=== PATIENT | male | born 1990 | race Caucasian/White ===

== ENCOUNTER 2019-10-05 11:39 | Emergency (ER) | payer OTHER ==
[2019-10-05] MEDS ORDERED: Sodium Chloride 0.9% 1000 ML 1,000 ML IV STA (11:52)
[2019-10-05] MEDS ORDERED: Robitussin AC Syrup Unit Dose Cup PO PRN (11:52)
[2019-10-05] MEDS ORDERED: TYLENOL 325 MG PO ONE (11:52)
[2019-10-05 12:12] LABS: Hematocrit 43.1 % (42-50); Hemoglobin 14.6 gm/dl (12.5-18.0); Mean Cell Volume 87.2 fl (78-100); Mean Corpuscular Hemoglobin 29.6 pg (26-32); Mean Corpuscular Hgb Concent. 33.9 g/dl (32-36); Mean Platelet Volume 9.5 fl (6-9.5); Platelet Count 197 K/mm3 (150-450); Red Blood Count 4.94 M/mm3 (4.1-5.6); Red Cell Distribution Width 13.2 % (11.5-14.0); White Blood Count 7.7 K/mm3 (4.0-10.5)
[2019-10-05] MEDS ORDERED: TYLENOL 325 MG ONE (12:21)
[2019-10-05] MEDS ORDERED: Sodium Chloride 0.9% 1000 ML 1,000 ML ONE (12:21)
[2019-10-05] MEDS ORDERED: Robitussin AC Syrup Unit Dose Cup ONE (12:21)
[2019-10-05 12:26] LABS: ALBUMIN 4.6 g/dL (3.5-5.0); ALKALINE PHOSPHATASE 82 U/L (38-126); ANION GAP 13.9 MEQ/L (5-15); BLOOD UREA NITROGEN 12 mg/dL (9-20); CHLORIDE 99 mmol/L (98-107); Calcium 9.7 mg/dL (8.4-10.2); Carbon Dioxide 30 mmol/L (22-30); Creatinine 1 0.96 mg/dL (0.66-1.25); Glucose 143 mg/dL (74-106); Potassium 4.2 mmol/L (3.5-5.1); SGOT/AST 39 U/L (17-59); SGPT/ALT 42 U/L (0-50); SODIUM 138 mmol/L (137-145); Total Protein 8.7 g/dL (6.3-8.2)
--- NOTE | 2019-10-05 12:37 | ERPHSYRPT ---
- History of Present Illness Time Seen by Provider: 10/05/19 12:35 Source: patient Exam Limitations: no limitations Patient Subjective Stated Complaint: pt c/o of vomiting, coughing, dizzy, diarrhea for past 3 days Triage Nursing Assessment: Pt walked into the ER, hypertensive, rates pain in chest at 3/10 from coughing, bowel sounds heard in all 4, lungs clear Physician History: pt c/o of vomiting, coughing, dizzy, diarrhea for past 3 days Timing/Duration: day(s) (3 days) Cough Quality/Degree: dry cough Associated Symptoms: fever, chills, cough, dizziness, headache, muscle aches, sore throat, other (diarrhea) International travel in last 2 weeks: No Allergies/Adverse Reactions: No Known Drug Allergies Allergy (Verified 10/05/19 11:55) Home Medications: Armodafinil 200 mg PO DAILY 10/05/19 [History] Hx Influenza Vaccination/Date Given: No - Review of Systems Constitutional: Fever, Chills, Malaise Eyes: No Symptoms Ears, Nose, & Throat: No Symptoms Respiratory: Cough, No Dyspnea Cardiac: No Chest Pain, No Edema, No Syncope Abdominal/Gastrointestinal: Diarrhea, No Abdominal Pain, No Nausea, No Vomiting Genitourinary Symptoms: No Dysuria Musculoskeletal: No Back Pain, No Neck Pain Skin: No Rash Neurological: Dizziness, No Focal Weakness, No Sensory Changes Psychological: No Symptoms Endocrine: No Symptoms All Other Systems: Reviewed and Negative - Past Medical History Pertinent Past Medical History: No - Past Surgical History Past Surgical History: No - Social History Smoking Status: Never smoker Exposure to second hand smoke: No Drug Use: none Patient Lives Alone: No - Nursing Vital Signs Nursing Vital Signs: Initial Vital Signs Temperature 99.0 F 10/05/19 11:46 Pulse Rate 94 H 10/05/19 11:46 Blood Pressure 154/93 10/05/19 11:46 O2 Sat by Pulse Oximetry 95 10/05/19 11:46 Pain Scale Pain Intensity 2 - Physical Exam General Appearance: no apparent distress, alert Eye Exam: PERRL/EOMI, eyes nml inspection Ears, Nose, Throat Exam: normal ENT inspection, TMs normal, pharynx normal, moist mucous membranes Neck Exam: normal inspection, non-tender, supple, full range of motion Respiratory Exam: normal breath sounds, lungs clear, No respiratory distress Cardiovascular Exam: regular rate/rhythm, normal heart sounds Gastrointestinal/Abdomen Exam: soft, No tenderness Back Exam: normal inspection, No CVA tenderness, No vertebral tenderness Extremity Exam: normal inspection, normal range of motion Neurologic Exam: alert, oriented x 3, cooperative, normal mood/affect, sensation nml, No motor deficits Skin Exam: normal color, warm, dry, No rash Lymphatic Exam: No adenopathy SpO2: 95 - Course Nursing assessment & vital signs reviewed: Yes - Radiology Exams Chest X-ray Interpretation: Reviewed by me Ordered Tests: Active Orders 24 hr Category Date Time Status CHEST 1 VIEW (PORTABLE) Stat Exams 10/05/19 11:53 Taken CBC W DIFF Stat Lab 10/05/19 11:50 Completed CMP Stat Lab 10/05/19 11:50 Completed Manual Differential NC Stat Lab 10/05/19 11:50 Completed Medication Summary Generic Name Dose Route Start Last Admin Trade Name Freq PRN Reason Stop Dose Admin Guaifenesin/Codeine Phosphate 10 ml 10/05/19 11:52 10/05/19 12:24 Robitussin Ac Syrup Unit Dose Cup PO 11/04/19 11:51 10 ml QIDP PRN Administration COUGH Discontinued Medications Generic Name Dose Route Start Last Admin Trade Name Freq PRN Reason Stop Dose Admin Acetaminophen 650 mg 10/05/19 11:52 10/05/19 12:24 Tylenol 325 Mg PO 10/05/19 11:53 650 mg STAT ONE Administration Acetaminophen Confirm 10/05/19 12:21 Tylenol 325 Mg Administered 10/05/19 12:22 Dose 650 mg .ROUTE .STK-MED ONE Sodium Chloride 1,000 mls @ 999 mls/hr 10/05/19 11:52 10/05/19 12:25 Sodium Chloride 0.9% 1000 Ml IV 10/05/19 12:52 999 mls/hr .Q1H1M STA Administration Sodium Chloride Confirm 10/05/19 12:21 Sodium Chloride 0.9% 1000 Ml Administered 10/05/19 12:22 Dose 1,000 mls @ ud .ROUTE .STK-MED ONE Lab/Rad Data: Laboratory Result Diagrams 10/05/19 11:50 10/05/19 11:50 Laboratory Results 10/05/19 10/05/19 10/05/19 Range/Units 12:00 11:50 11:50 WBC 7.7 (4.0-10.5) K/mm3 RBC 4.94 (4.1-5.6) M/mm3 Hgb 14.6 (12.5-18.0) gm/dl Hct 43.1 (42-50) % MCV 87.2 (78-100) fl MCH 29.6 (26-32) pg MCHC 33.9 (32-36) g/dl RDW 13.2 (11.5-14.0) % Plt Count 197 (150-450) K/mm3 MPV 9.5 (6-9.5) fl Sodium 138 (137-145) mmol/L Potassium 4.2 (3.5-5.1) mmol/L Chloride 99 (98-107) mmol/L Carbon Dioxide 30 (22-30) mmol/L Anion Gap 13.9 (5-15) MEQ/L BUN 12 (9-20) mg/dL Creatinine 0.96 (0.66-1.25) mg/dL Estimated GFR > 60.0 ML/MIN Glucose 143 H (74-106) mg/dL Calcium 9.7 (8.4-10.2) mg/dL Total Bilirubin 0.50 (0.2-1.3) mg/dL AST 39 (17-59) U/L ALT 42 (0-50) U/L Alkaline Phosphatase 82 (38-126) U/L Serum Total Protein 8.7 H (6.3-8.2) g/dL Albumin 4.6 (3.5-5.0) g/dL Influenza Type A Ag NEGATIVE (NEGATIVE) Influenza Type B Ag NEGATIVE (NEGATIVE) RSV (PCR) NEGATIVE (Negative) Group A Strep Antibody NEGATIVE (NEGATIVE) - Progress Progress: improved Air Movement: good Blood Culture(s) Obtained: No Antibiotics given: No Counseled pt/family regarding: lab results, diagnosis, need for follow-up, rad results - Departure Departure Disposition: Home Clinical Impression: Bronchitis Condition: Stable Critical Care Time: No Referrals: ITALO BERUMEN [Primary Care Provider] - Instructions: Acute Bronchitis Additional Instructions: Discharge/Care Plan PARISH SINGH was seen on 10/05/19 in the Emergency Room. The patient was counseled regarding Diagnosis,Lab results, Imaging studies, need for follow up and when to return to the Emergency Room. Prescriptions given: Discharge Note I have spoken with the patient and/or caregivers. I have explained the patient' s condition, diagnosis and treatment plan based on the information available to me at this time. I have answered the patient's and/or caregiver's questions and addressed any concerns. The patient and/or caregivers have as good understanding of the patient's diagnosis, condition and treatment plan as can be expected at this point. The vital signs have been stable. The patient's condition is stable and appropriate for discharge from the emergency department. The patient will pursue further outpatient evaluation with the primary care physician or other designated or consulting physician as outlined in the discharge instructions. The patient and/or caregivers are agreeable to this plan of care and follow-up instructions have been explained in detail. The patient and/or caregivers have received these instruction. The patient/and or caregivers are aware that any significant change in condition or worsening of symptoms should prompt an immediate return to this or the closest emergency department or call 911. PARISH SINGH KE was seen on 10/05/19 n the Emergency Room. At that time you were treated for an emergent condition, during your visit Laboratory, Radiology and/or other procedures may have been ordered. It is very important that you follow-up with your Primary Care Physician ITALO BERUMEN within the next 24 -48 hours to review your Emergency Room visit and the final results of testing that was ordered. Some test results such as Urine Cultures, Blood Cultures, and other cultures if ordered will not be finalized for 24-48 hours. If you do not have a Primary Care Provider please call the medical records department at [phone] to obtain a copy of your results or you may sign into our patient portal to obtain these results by visiting us @ [email or web address] and completing the following steps: 1. Click on the Patient Portal link 2. Click the Patient Self Enrollment Link to complete the enrollment form and entering your 3. Once the enrollment form is completed you will receive an email with a temporary ID and password at the email address you provided. 4. Next choose a user name and password. Your user name must be at least 4 characters long and your password must be at least 4 characters long. 5. Choose a security question from the list and provide your answer to the question. If you already have signed into the Health Portal you may access your Health Care Information 30/04 by the following steps: 1. Login to our website @ [email or web address] 2. Enter your original user name and password. FAQS [facility] Portal is an online tool that contains your Lab Results, Radiology Reports, Visit History, Discharge Instructions and Health Summary Lab and Radiology Results will not be available for 72 hours on the portal. The Portal is a secure site, passwords are encryted and URLs are re-written so they cannot be copied and pasted. You and authorized family members are the only ones who can access your Portal. Also there is a timeout feature that protects your information if you leave the Portal page open. If you have technical difficulty please use the Contact Us link on the page this will allow you to submit any questions you have regarding the Portal or you may contact the Medical Record Department at [phone]. Forms: Work/School Release Form Prescriptions: Albuterol Sulfate [Proair Hfa] 8.5 gm IH BID #1 hfa.aer.ad Benzonatate [Tessalon Perle] 100 mg PO QID #30 capsule Azithromycin [Zithromax] 250 mg PO UD #6 tablet
[2019-10-05 12:48] LABS: Group A Strep NEGATIVE (NEGATIVE); INFLUENZA A NEGATIVE (NEGATIVE); INFLUENZA B NEGATIVE (NEGATIVE); RESPIRATORY SYNCTIAL VIRUS NEGATIVE (Negative)
[2019-10-05 13:10] LABS: Basophil 1 % (0.0-1.0); Lymphocytes 17 % (24-44); Monocyte 8 % (0.0-12.0); Neutrophils 74 % (36.-66.); Platelet Estimate NORMAL (NORMAL); Total Cells Counted 100
[2019-10-05 13:17] VITALS: BP 134/83; PULSE 84; O2SAT 98
--- NOTE | 2019-10-05 20:18 | XRAY ---
Indication: Fever, cough, congestion, and vomiting. Comparison: November 13, 2018. Portable chest again demonstrates normal heart, lungs, and bony thorax.
== END 2019-10-05 13:23 | disposition home or self-care (01) ==
LOC: ED 11:39
DX: J40 Bronchitis, not specified as acute or chronic (principal)
CPT/HCPCS: 36000; 36415; 71045; 80053; 85025; 87631; 87651; 96360; 99284; A9270-GY